=== PATIENT | female | born 1965 | race Two or more races ===

== ENCOUNTER 2019-09-29 15:01 | Outpatient (CLI) | payer OTHER | END 2019-09-29 15:17 | disposition home or self-care (01) | LOC: RAD 15:01 | DX: M54.2 Cervicalgia (principal); M25.511 Pain in right shoulder ==

== ENCOUNTER 2019-10-07 11:18 | Outpatient (CLI) | payer OTHER | END 2019-10-07 11:50 | disposition home or self-care (01) | LOC: NUCLEAR 11:18 | DX: M81.0 Age-related osteoporosis without current pathological fracture (principal) ==

== ENCOUNTER 2020-06-06 11:21 | Outpatient (CLI) | payer OTHER | END 2020-06-06 11:30 | disposition home or self-care (01) | LOC: RAD 11:21 | PROVIDERS: ATTEND Orthopaedic Surgery | DX: R07.89 Other chest pain (principal) ==

== ENCOUNTER 2020-06-10 13:25 | Outpatient (CLI) | payer OTHER | END 2020-06-10 14:00 | disposition home or self-care (01) | LOC: RAD 13:25 | PROVIDERS: ATTEND Orthopaedic Surgery | DX: M25.511 Pain in right shoulder (principal) ==